=== PATIENT | female | born 1940 | race African-American/Black ===

== ENCOUNTER 2022-10-07 08:26 | Emergency (ER) | payer MEDICARE, BC | END 2022-10-07 09:18 | disposition home or self-care (01) | LOC: CSHERS 08:26 | DX: R09.81 Nasal congestion (principal); R42 Dizziness and giddiness; T43.8X5A Adverse effect of other psychotropic drugs, initial encounter | CPT/HCPCS: 93005; 99283 ==

== ENCOUNTER 2023-06-29 15:33 | Outpatient (CLI) | payer MEDICARE, BC ==
[~2023-06-29 15:33] MED LIST: Iopamidol 300 61% 100 ML VIAL FS ONE
== END 2023-06-29 15:34 | disposition home or self-care (01) ==
LOC: CSHCT 15:33
PROVIDERS: ATTEND Family Medicine
DX: J18.9 Pneumonia, unspecified organism (principal); M48.54XA Collapsed vertebra, not elsewhere classified, thoracic region, initial encounter for fracture
CPT/HCPCS: 71260; 82565